=== PATIENT | female | born 1995 | race American Indian/Alaskan Native ===

== ENCOUNTER 2017-08-28 15:42 | Emergency (ER) | payer OTHER ==
[2017-08-28 16:06] VITALS: BP 107/65
[2017-08-28 16:48] LABS: HCG Qualitative,Urine Negative (Negative)
[2017-08-28] MEDS ORDERED: FIORICET PO ONE (17:32)
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
--- NOTE | 2017-08-28 19:06 | XRay Report ---
FINAL REPORT EXAM: XR HAND 3+V LT HISTORY: hand/ pain TECHNIQUE: 3 views of left hand. PRIORS: None. FINDINGS: No apparent fracture or dislocation. Joint spaces maintained. Soft tissues grossly unremarkable. IMPRESSION: 1. No acute osseous abnormality.
== END 2017-08-28 19:20 | disposition home or self-care (01) ==
LOC: ED 15:42
DX: S60.222A Contusion of left hand, initial encounter (principal); G44.209 Tension-type headache, unspecified, not intractable; E03.9 Hypothyroidism, unspecified; V49.49XA Driver injured in collision with other motor vehicles in traffic accident, initial encounter; Y93.89 Activity, other specified; Y92.89 Other specified places as the place of occurrence of the external cause; Y99.8 Other external cause status
CPT/HCPCS: 81025